=== PATIENT | female | born 1960 | race Two or more races ===

== ENCOUNTER 2017-07-16 14:52 | Emergency (ER) | payer SELFPAY ==
[~2017-07-16] VITALS: Ht 154.9 cm; Wt 75.7 kg
[~2017-07-16 14:52] MED LIST: ATOR10TA60 PO; CHOLESTEROL MED PO; LEVO75TA5 PO; OSEL75CA PO
--- NOTE | 2017-07-16 15:19 | EKG ---
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
[2017-07-16 15:41] LABS: BASO # 0.1 x10^3/uL (0.0-0.2); BASO % 1 % (0-3); EOS % 5 % (0-3); HEMATOCRIT 40.7 % (36.0-47.0); HEMOGLOBIN 14.4 g/dL (12.0-15.5); LYMPH # 2.6 x10^3/uL (1.0-4.8); LYMPH % 37 % (24-48); MEAN CORPUSCULAR HEMOGLOBIN 30 pg (25-35); MEAN CORPUSCULAR HGB CONC 35 g/dL (31-37); MEAN CORPUSCULAR VOLUME 84 fL (79-100); MONO % 6 % (0-9); NEUT % 52 % (31-73); PLATELET COUNT 171 x10^3/uL (140-400); RED BLOOD COUNT 4.82 x10^6/uL (3.50-5.40); RED CELL DISTRIBUTION WIDTH 13.9 % (11.5-14.5)
--- NOTE | 2017-07-16 15:53 | RAD ---
Indication chest pain radiating to the left arm. A single view of the chest was obtained. Comparison is made to an exam 12/17/2015. Heart size is at the upper limits of normal. Calcified mediastinal lymph nodes are noted. Pulmonary vasculature is normal. No acute parenchymal infiltrate is seen. There is no pleural fluid. There has not been a significant change compared to the prior exam. IMPRESSION: No acute or focal process is seen in the chest
[2017-07-16 15:59] LABS: ALBUMIN 3.8 g/dL (3.4-5.0); CALCIUM 8.9 mg/dL (8.5-10.1); CREATININE 0.6 mg/dL (0.6-1.0); POTASSIUM 3.9 mmol/L (3.5-5.1); TOTAL BILIRUBIN 0.2 mg/dL (0.2-1.0); TOTAL PROTEIN 7.7 g/dL (6.4-8.2)
--- NOTE | 2017-07-16 16:22 | ED.ADGEN ---
Past Medical History Past Medical History: High Cholesterol, Hypothyroid, Kidney Stone Past Surgical History: Hysterectomy Additional Past Surgical Histo: KIDEY STONES X 2 Alcohol Use: Occasionally Drug Use: None Adult General Chief Complaint Chief Complaint: CHEST PAIN HPI HPI Patient is a 57 year old woman, history of hypertension, hypercholesterolemia, renal calculi, who presents to the emergency room also complaints. Patient states that she's been experiencing a cough over the past several days, productive of initially clear sputum, now sputum that is blood streaked, describes it is bright red blood, mixed with mucus. No camilla blood, no vomiting , states she is experiencing chest heaviness, some nausea, some shortness of breath. Denies any discrete fevers or chills, any focal weakness, numbness or tingling, any headache or blurred vision, any injuries. No abdominal pain. Patient states that today when she urinated she also noted that there was some blood in her urine. She states she is having aching in the back, and is concerned about "my kidneys". Patient is primarily [place]e speaking, translation is assisted with family at bedside patient's request. No history of DVT or PE in himself or family members, patient does not take any blood thinners. Review of Systems Review of Systems Constitutional: Denies fever or chills. [] Eyes: Denies change in visual acuity. [] HENT: Denies nasal congestion or sore throat. [] Respiratory: Cough productive clear sputum, now blood-tinged. Shortness of breath. Cardiovascular: Chest heaviness, worse with coughing. No edema. GI: Denies abdominal pain, nausea, vomiting, bloody stools or diarrhea. [] : Denies dysuria. Hematuria times one today. Musculoskeletal: Denies back pain, complaining of flank pain, bilaterally. Complaining of soreness in the bilateral shoulders.] Integument: Denies rash. [] Neurologic: Denies headache, focal weakness or sensory changes. [] Endocrine: Denies polyuria or polydipsia. [] Lymphatic: Denies swollen glands. [] Psychiatric: Denies depression or anxiety. [] Current Medications Current Medications Current Medications Medications (Trade) Dose Ordered Sig/Yoav Start Time Stop Time Status Last Admin Dose Admin Benzonatate (Tessalon Perle) 100 mg 1X ONCE 07/16/17 18:45 07/16/17 18:46 DC 07/16/17 18:46 100 MG Info (Do NOT chart on this entry -- for MONITORING) 1 each PRN DAILY PRN 07/16/17 17:00 07/16/17 19:40 DC Iohexol (Omnipaque 300 Mg/ml) 75 ml 1X ONCE 07/16/17 17:00 07/16/17 17:01 DC 07/16/17 16:59 75 ML Naproxen (Naprosyn) 250 mg 1X ONCE 07/16/17 18:45 07/16/17 18:46 DC 07/16/17 18:47 250 MG Allergies Allergies Allergies Coded Allergies Type Severity Reaction Last Updated Verified No Known Drug Allergies 12/17/15 No Physical Exam Physical Exam Constitutional: Well developed, well nourished, no acute distress, non-toxic appearance. [] HENT: Normocephalic, atraumatic, bilateral external ears normal, oropharynx moist, no oral exudates, nose normal. [] Eyes: PERRLA, EOMI, conjunctiva normal, no discharge. [] Neck: Normal range of motion, no tenderness, supple, no stridor. [] Cardiovascular:Heart rate regular rhythm, no murmur [] Lungs & Thorax: Bilateral breath sounds clear to auscultation [] Abdomen: Bowel sounds normal, soft, no tenderness, no masses, no pulsatile masses. [] Skin: Warm, dry, no erythema, no rash. [] Back: No tenderness, no CVA tenderness. [] Extremities: No tenderness, no cyanosis, no clubbing, ROM intact, no edema. [] Neurologic: Alert and oriented X 3, normal motor function, normal sensory function, no focal deficits noted. [] Psychologic: Affect normal, judgement normal, mood normal. [] Current Patient Data Vital Signs Vital Signs Date Time Temp Pulse Resp B/P (MAP) Pulse Ox O2 Delivery O2 Flow Rate FiO2 07/16/17 19:30 66 18 136/81 (99) 96 Room Air 07/16/17 15:00 97.8 97.8 Lab Values Laboratory Tests Test 07/16/17 15:30 07/16/17 15:55 07/16/17 16:25 07/16/17 18:45 White Blood Count 7.0 x10^3/uL (4.0-11.0) Red Blood Count 4.82 x10^6/uL (3.50-5.40) Hemoglobin 14.4 g/dL (12.0-15.5) Hematocrit 40.7 % (36.0-47.0) Mean Corpuscular Volume 84 fL (79-100) Mean Corpuscular Hemoglobin 30 pg (25-35) Mean Corpuscular Hemoglobin Concent 35 g/dL (31-37) Red Cell Distribution Width 13.9 % (11.5-14.5) Platelet Count 171 x10^3/uL (140-400) Neutrophils (%) (Auto) 52 % (31-73) Lymphocytes (%) (Auto) 37 % (24-48) Monocytes (%) (Auto) 6 % (0-9) Eosinophils (%) (Auto) 5 % (0-3) H Basophils (%) (Auto) 1 % (0-3) Neutrophils # (Auto) 3.6 x10^3uL (1.8-7.7) Lymphocytes # (Auto) 2.6 x10^3/uL (1.0-4.8) Monocytes # (Auto) 0.4 x10^3/uL (0.0-1.1) Eosinophils # (Auto) 0.3 x10^3/uL (0.0-0.7) Basophils # (Auto) 0.1 x10^3/uL (0.0-0.2) D-Dimer ([place]hely) 0.38 ug/mlFEU (0.00-0.50) Sodium Level 142 mmol/L (136-145) Potassium Level 3.9 mmol/L (3.5-5.1) Chloride Level 104 mmol/L (98-107) Carbon Dioxide Level 28 mmol/L (21-32) Anion Gap 10 (6-14) Blood Urea Nitrogen 16 mg/dL (7-20) Creatinine 0.6 mg/dL (0.6-1.0) Estimated GFR (Cockcroft-Gault) 103.0 BUN/Creatinine Ratio 27 (6-20) H Glucose Level 152 mg/dL (70-99) H Calcium Level 8.9 mg/dL (8.5-10.1) Total Bilirubin 0.2 mg/dL (0.2-1.0) Aspartate Amino Transferase (AST) 25 U/L (15-37) Alanine Aminotransferase (ALT) 31 U/L (14-59) Alkaline Phosphatase 99 U/L (46-116) Troponin I Quantitative < 0.017 ng/mL (0.000-0.055) < 0.017 ng/mL (0.000-0.055) DD-Pvm-R-Type Natriuretic Peptide 26 pg/mL (0-124) Total Protein 7.7 g/dL (6.4-8.2) Albumin 3.8 g/dL (3.4-5.0) Albumin/Globulin Ratio 1.0 (1.0-1.7) Lipase 201 U/L (73-393) Urine Collection Type Unknown Urine Color Yellow Urine Clarity Clear Urine pH 7.5 Urine Specific [place] 1.010 Urine Protein Negative mg/dL (NEG-TRACE) Urine Glucose (UA) Negative mg/dL (NEG) Urine Ketones (Stick) Negative mg/dL (NEG) Urine Blood Negative (NEG) Urine Nitrite Negative (NEG) Urine Bilirubin Negative (NEG) Urine Urobilinogen Dipstick 0.2 mg/dL (0.2 mg/dL) Urine Leukocyte Esterase Small (NEG) Urine RBC Rare /HPF (0-2) Urine WBC 1-4 /HPF (0-4) Urine Squamous Epithelial Cells Few /LPF Urine Bacteria Few /HPF (0-FEW) Urine Mucus Slight /LPF Influenza Type A Antigen Negative (NEGATIVE) Influenza Type B Antigen Negative (NEGATIVE) Laboratory Tests 07/16/17 15:30 Laboratory Tests 07/16/17 15:30 EKG EKG EC: Sinus rhythm, heart rate 70 bpm, left axis deviation, QTC of 446, CT 158, QRS of 82, no ST elevations or depressions, no evidence of acute ST abnormalities. As interpreted by me.[] Radiology/Procedures Radiology/Procedures [][facility] [address] [place], [place] [id number] IMAGING REPORT Signed PATIENT: SATINDER BOWSER ACCOUNT: [id number] : 1960 LOCATION: ER AGE: 57 SEX: F EXAM STATUS: REG ER ORD. PHYSICIAN: BLUE MENDEZ DO REASON: cough/hemoptysis PROCEDURE: CT ANGIOGRAPHY CHEST CTA scan of the Chest with Contrast (Pulmonary Embolism protocol) 07/16/2017 Clinical History: Cough and hemoptysis. Technique: After the intravenous administration of 75 cc of Isovue-370, contiguous, 0.625 mm axial sections were obtained through the chest. 2.5 mm axial and 3D MIP coronal and sagittal reconstructed images were obtained. One or more of the following individualized dose reduction techniques were utilized for this study: 1. Automated exposure control. 2. Adjustment of the mA and/or kV according to patient size. 3. Use of iterative reconstruction technique. Findings: No filling defect is seen within the major branches of either pulmonary artery. There is no CT evidence of pulmonary embolism. The heart is normal in size. Atherosclerotic calcification of the thoracic aorta is seen. The thoracic aorta tapers normally. Calcified right hilar and mediastinal lymph nodes are seen. Minimal dependent subsegmental atelectasis is seen involving both lungs. No pulmonary infiltrate, pleural effusion or pneumothorax is seen. Nonobstructing left renal calculi are seen which measure 6 mm to 1.2 cm in size. Impression: There is no CT evidence of pulmonary embolism. Electronically signed by: Sukhdeep Smith MD (07/16/2017 5:38 PM) [facility] DICTATED and SIGNED BY: SUKHDEEP SMITH MD DATE: 07/16/17 173 CC: BLUE MENDEZ DO; NO PCP ~ Course & Med Decision Making Course & Med Decision Making Pertinent Labs and Imaging studies reviewed. (See chart for details) Patient well-appearing, vital signs within normal limits. Patient coughing in the ED, complaining of chest pain with coughing, initially had clear sputum, now has some mild blood-tinged. No camilla abscesses as stated. Received x-ray of the chest which is unremarkable, but due to persistent complaints, CT of the chest obtained to rule out any occult pathology, this was also unremarkable, and this was discussed with patient. Patient is feeling much better at this time after receiving Tessalon Perle, naproxen in the ED. No concerning laboratory studies identified, patient with repeat troponin which was also negative. I did discuss this with patient and family at bedside, patient states she is rated go home as she is feeling much better, we did discuss use of medications for treatment of likely viral illness, as patient is now stating that she does have sick contacts at home, importance of follow-up with a primary care provider, and concerning symptoms that prompt return to the ED for additional evaluation. Patient voiced understanding and agreement with instructions, prescriptions, and precautions as stated. Patient discharged home with family in stable condition with prescriptions for Tessalon Perles, naproxen , and albuterol inhaler with plan and precautions as above. Dragon Disclaimer Dragon Disclaimer This electronic medical record was generated, in whole or in part, using a voice recognition dictation system. Departure Impression: Primary Impression: Viral illness Additional Impression: Cough Disposition: 01 HOME, SELF-CARE Condition: IMPROVED Scripts Naproxen (NAPROXEN) 250 Mg Tablet 250 MG PO PRN BID Y for PAIN, #10 Prov: BLUE MENDEZ DO 07/16/17 Albuterol Sulfate (PROAIR HFA INHALER) 8.5 Gm Hfa.aer.ad 1 PUFF INH PRN Q6HRS Y for SHORTNESS OF BREATH, #1 INHALER 0 Refills Prov: BLUE MENDEZ DO 07/16/17 Benzonatate (TESSALON PERLE) 100 Mg Capsule 100 MG PO TID Y for COUGH, #18 CAP Prov: BLUE MENDEZ DO 07/16/17 Problem Qualifiers BLUE MENDEZ DO Jul 16, 2017 16:22
[2017-07-16 16:27] LABS: BILIRUBIN,URINE NEGATIVE (NEG); GLUCOSE,URINE NEGATIVE (NEG); NITRITE,URINE NEGATIVE (NEG); PH,URINE 7.5; PROTEIN,URINE NEGATIVE (NEG-TRACE); UROBILINOGEN,URINE 0.2 mg/dL (0.2 mg/dL)
[2017-07-16 16:36] LABS: BACTERIA,URINE FEW /HPF (0-FEW); RBC,URINE RARE /HPF (0-2); SQUAMOUS EPITHELIAL CELL,UR FEW /LPF
[2017-07-16 16:59] LABS: OBC FLU VALID
[2017-07-16] MEDS ORDERED: CONTRAST GIVEN MC PRN (17:00)
[2017-07-16] MEDS ORDERED: IOHEXOL 300 MG/ML 75 ML VIAL IV ONE (17:00)
--- NOTE | 2017-07-16 17:42 | RAD ---
CTA scan of the Chest with Contrast (Pulmonary Embolism protocol) 07/16/2017 Clinical History: Cough and hemoptysis. Technique: After the intravenous administration of 75 cc of Isovue-370, contiguous, 0.625 mm axial sections were obtained through the chest. 2.5 mm axial and 3D MIP coronal and sagittal reconstructed images were obtained. One or more of the following individualized dose reduction techniques were utilized for this study: 1. Automated exposure control. 2. Adjustment of the mA and/or kV according to patient size. 3. Use of iterative reconstruction technique. Findings: No filling defect is seen within the major branches of either pulmonary artery. There is no CT evidence of pulmonary embolism. The heart is normal in size. Atherosclerotic calcification of the thoracic aorta is seen. The thoracic aorta tapers normally. Calcified right hilar and mediastinal lymph nodes are seen. Minimal dependent subsegmental atelectasis is seen involving both lungs. No pulmonary infiltrate, pleural effusion or pneumothorax is seen. Nonobstructing left renal calculi are seen which measure 6 mm to 1.2 cm in size. Impression: There is no CT evidence of pulmonary embolism. Electronically signed by: Sukhdeep Castillo MD (07/16/2017 5:38 PM) [facility]
[2017-07-16] MEDS ORDERED: NAPROXEN 250 MG TABLET PO ONE (18:45)
[2017-07-16] MEDS ORDERED: BENZONATATE 100 MG CAPSULE. PO ONE (18:45)
[2017-07-16 19:30] VITALS: BP 136/81
[2017-07-16] MEDS ORDERED: BENZ100C PO (19:32)
[2017-07-16] MEDS ORDERED: PROAIR HFA8.5 GM INH (19:32)
[2017-07-16] MEDS ORDERED: NAPR250T6 PO (19:32)
== END 2017-07-16 19:40 | disposition home or self-care (01) ==
LOC: ER 14:52
DX: B34.9 Viral infection, unspecified (principal); E78.00 Pure hypercholesterolemia, unspecified; E03.9 Hypothyroidism, unspecified; Z87.442 Personal history of urinary calculi
CPT/HCPCS: 36415; 71010; 71275; 80053; 81001; 83690; 83880; 84484; 85025; 85379; 87086; 87804; 93005; 99285; Q9967

== ENCOUNTER 2017-09-11 15:57 | Emergency (ER) | payer SELFPAY ==
[~2017-09-11] VITALS: Ht 154.9 cm; Wt 76.2 kg
[~2017-09-11 15:57] MED LIST changes: +BENZ100C PO; +NAPR250T6 PO; +PROAIR HFA8.5 GM INH
[2017-09-11 16:28] LABS: BILIRUBIN,URINE NEGATIVE (NEG); GLUCOSE,URINE NEGATIVE (NEG); NITRITE,URINE NEGATIVE (NEG); PROTEIN,URINE NEGATIVE (NEG-TRACE); UROBILINOGEN,URINE 0.2 mg/dL (0.2 mg/dL)
[2017-09-11] MEDS ORDERED: DEXAMETHASONE SOD PHOS 20 MG/5 ML VIAL. IM STA (16:32)
[2017-09-11 16:34] LABS: BACTERIA,URINE 0 /HPF (0-FEW); RBC,URINE 0 /HPF (0-2); SQUAMOUS EPITHELIAL CELL,UR FEW /LPF
--- NOTE | 2017-09-11 16:39 | PHYS DOC ---
Past Medical History Past Medical History: High Cholesterol, Hypothyroid, Kidney Stone Past Surgical History: Hysterectomy Additional Past Surgical Histo: KIDEY STONES X 2 Alcohol Use: Occasionally Drug Use: None Adult General Chief Complaint Chief Complaint: FLANK PAIN HPI HPI Patient is a 57 year old female who presents with complaint of right-sided back pain. Patient states that her symptoms started 3 days ago. Patient states that she started having symptoms after trying to left a heavy box at home. Patient states that she has had problems with her back and has had 2 prior back surgeries for treatment. Patient states that the pain is sharp and currently rates her pain as "11 out of 10." Patient states that the pain radiates towards her right flank. Patient denies any associated fever, nausea, vomiting, diarrhea , or abdominal pain. Patient states that her pain worsens with movement at her waist. Patient denies loss of bowel or bladder control, saddle anesthesia, foot drop, or pain radiating into her right lower extremity. Review of Systems Review of Systems Constitutional: Denies fever or chills [] Eyes: Denies change in visual acuity, redness, or eye pain [] HENT: Denies nasal congestion or sore throat [] Respiratory: Denies cough or shortness of breath [] Cardiovascular: Denies chest pain or edema[] GI: Denies abdominal pain, nausea, vomiting, bloody stools or diarrhea [] : Denies dysuria or hematuria [] Musculoskeletal: Right-sided low back pain[] Integument: Denies rash or skin lesions [] Neurologic: Denies headache, focal weakness or sensory changes [] All other systems were reviewed and found to be within normal limits, except as documented in this note. Current Medications Current Medications Current Medications Medications (Trade) Dose Ordered Sig/Yoav Start Time Stop Time Status Last Admin Dose Admin Dexamethasone Sodium Phosphate (Decadron) 12 mg 1X STAT 09/11/17 16:32 09/11/17 16:41 DC 09/11/17 16:57 12 MG Morphine Sulfate 5 mg 1X ONCE 09/11/17 16:45 09/11/17 16:46 DC 09/11/17 16:57 5 MG Allergies Allergies Allergies Coded Allergies Type Severity Reaction Last Updated Verified No Known Drug Allergies 12/17/15 No Physical Exam Physical Exam Constitutional: Alert, afebrile, appears in moderate discomfort. [] HENT: Normocephalic, atraumatic, bilateral external ears normal, oropharynx moist, no oral exudates, nose normal. [] Eyes: PERRLA, EOMI, conjunctiva normal, no discharge. [] Neck: Normal range of motion, no tenderness, supple, no stridor. [] Cardiovascular:Heart rate regular rhythm, no murmur [] Lungs & Thorax: Bilateral breath sounds clear to auscultation [] Abdomen: Bowel sounds normal, soft, no tenderness, no masses, no pulsatile masses. [] Skin: Warm, dry, no erythema, no rash. [] Back: No midline tenderness, right lower lumbar paraspinous muscle tenderness to palpation, no flank ecchymosis. [] Extremities: No tenderness, no cyanosis, no clubbing, ROM intact, no edema. [] Neurologic: Alert and oriented X 3, normal motor function, normal sensory function, no focal deficits noted. [] Current Patient Data Vital Signs Vital Signs Date Time Temp Pulse Resp B/P (MAP) Pulse Ox O2 Delivery O2 Flow Rate FiO2 09/11/17 16:40 97.8 68 16 149/73 (98) 98 Room Air 97.8 Lab Values Laboratory Tests Test 09/11/17 16:15 Urine Collection Type Unknown Urine Color Yellow Urine Clarity Clear Urine pH 7.0 Urine Specific [place] 1.010 Urine Protein Negative mg/dL (NEG-TRACE) Urine Glucose (UA) Negative mg/dL (NEG) Urine Ketones (Stick) Negative mg/dL (NEG) Urine Blood Negative (NEG) Urine Nitrite Negative (NEG) Urine Bilirubin Negative (NEG) Urine Urobilinogen Dipstick 0.2 mg/dL (0.2 mg/dL) Urine Leukocyte Esterase Small (NEG) Urine RBC 0 /HPF (0-2) Urine WBC 1-4 /HPF (0-4) Urine Squamous Epithelial Cells Few /LPF Urine Bacteria 0 /HPF (0-FEW) EKG EKG Not performed[] Radiology/Procedures Radiology/Procedures Not performed[] Course & Med Decision Making Course & Med Decision Making Pertinent Labs and Imaging studies reviewed. (See chart for details) Patient is suffering from back pain which was brought on by heavy lifting and patient shows no signs of midline tenderness on exam. For this reason, x-rays were not taken due to low suspicion for acute bony injury. Patient was treated with IM morphine and Decadron. On reevaluation, the patient states that her pain has improved. The patient will be continued on Jamison and Medrol Dosepak for treatment of acute on chronic low back pain. Advised patient to follow-up in 5 days with the patient's primary doctor for reevaluation and recommended return to the emergency department for any worsening symptoms. Dragon Disclaimer Dragon Disclaimer This electronic medical record was generated, in whole or in part, using a voice recognition dictation system. Departure Departure Impression: Primary Impression: Acute exacerbation of chronic low back pain Disposition: HOME, SELF-CARE Condition: IMPROVED Referrals: NO PCP (PCP) Patient Instructions: Back Pain, Adult Additional Instructions: Follow-up to primary doctor in 5 days for reevaluation. Return to the emergency department for any worsening symptoms. Scripts Hydrocodone/Apap 5-325 (NORCO 5-325 TABLET) 1 Each Tablet 1-2 TAB PO Q4-6HRS Y for PAIN, #20 TAB Prov: JM FLORIAN MD 09/11/17 Methylprednisolone (MEDROL) 4 Mg Tab.ds.pk 1 PKG PO UD, #1 PKG Prov: JM FLORINA MD 09/11/17 JM FLORIAN MD Sep 11, 2017 16:39
[2017-09-11 16:40] VITALS: BP 149/73
[2017-09-11] MEDS ORDERED: MORPHINE SULFATE 10 MG/ML VIAL. IM ONE (16:45)
[2017-09-11] MEDS ORDERED: HYDR-971 PO (17:49)
[2017-09-11] MEDS ORDERED: METH4TAB2 PO (17:49)
== END 2017-09-11 18:26 | disposition home or self-care (01) ==
LOC: ER 15:57
DX: G89.29 Other chronic pain (principal); M54.5 Low back pain; E78.00 Pure hypercholesterolemia, unspecified; E03.9 Hypothyroidism, unspecified; Z87.442 Personal history of urinary calculi; Z90.710 Acquired absence of both cervix and uterus
CPT/HCPCS: 81001; 87086; 96372; 99284; J1100; J2270